=== PATIENT | female | born 1995 | race Caucasian/White ===

== ENCOUNTER 2021-08-15 21:41 | Emergency (ER) | payer OTHER ==
[2021-08-16] MEDS ORDERED: PREDNISONE 20MG20 MG PO (01:36)
== END 2021-08-16 01:58 | disposition home or self-care (01) ==
LOC: FER 21:41
DX: K12.0 Recurrent oral aphthae (principal); Z88.2 Allergy status to sulfonamides
CPT/HCPCS: 99282; J1100